=== PATIENT | male | born 1960 | race Caucasian/White ===

== ENCOUNTER 2024-02-19 11:10 | Emergency (ER) | payer SELFPAY ==
[~2024-02-19] VITALS: Ht 175.3 cm; Wt 65.0 kg
[2024-02-19] VITALS (11 sets, daily range): BP systolic 102–123; BP diastolic 69–88
[2024-02-19] MEDS ORDERED: ISOVUE-300 (Iopamidol) 100 ML SDV IV ONE (13:00)
[2024-02-19 13:17] LABS: URINE BLOOD DIPSTICK Moderate (NEGATIVE); URINE GLUCOSE - DIPSTICK 100 mg/dL (NEGATIVE); URINE KETONE 15 mg/dL (NEGATIVE); URINE PROTEIN - DIPSTICK >=300 mg/dL (NEG-TRACE); URINE SPECIFIC GRAVITY 1.025
[2024-02-19 13:18] LABS: URINE COLOR Dark yellow; URINE LEUK ESTERASE Large (NEGATIVE); URINE NITRITE - DIPSTICK Positive (Negative)
[2024-02-19 13:31] LABS: URINE WBC >100 WBC/hpf (0-5)
[2024-02-19 13:34] LABS: URINE BACTERIA MODERATE hpf
[2024-02-19 13:36] LABS: URINE MUCUS MODERATE hpf (NONE-FEW)
[2024-02-19 13:43] LABS: ALBUMIN 3.6 g/dL (3.2-5.0); BASO% 0.8 % (0-3); CREATININE 0.6 mg/dL (0.7-1.3); HEMOGLOBIN 11.1 g/dl (14.0-18.0); MEAN CELL VOLUME 87.6 fL CALC (80.0-100.0); MEAN CORPUSCULAR HGB 28.6 pG CALC (26.0-32.0); MEAN CORPUSCULAR HGB CONC 32.6 g/dL CAL (32.0-36.0); MONO% 9.7 % (2-13); NEUT# 10.81 thou/uL (1.82-7.42); NEUT% 75.5 % (42-76); POTASSIUM 3.7 mmol/l (3.5-5.1); RED BLOOD COUNT 3.88 mill/uL (4.70-6.10)
[2024-02-19] MEDS ORDERED: SODIUM CHLORIDE 0.9% 1,000 ML IV ONE (13:45)
[2024-02-19] MEDS ORDERED: cefTRIAXone SODIUM 2 GM in SODIUM CHLORIDE 0.9% 100 ML IV ONE (13:45)
[2024-02-19] MEDS ORDERED: cefTRIAXone SODIUM 2 GM/VIAL SDV IJ ONE (14:00)
[2024-02-19] MEDS ORDERED: CIPROFLOXACN500 MG PO (17:54)
[2024-02-19] MEDS ORDERED: METRONIDAZOLE500 MG PO (17:54)
== END 2024-02-19 18:25 | disposition home or self-care (01) | DRG 699 ==
LOC: ED 11:10
PROVIDERS: Emergency Medicine; Nurse Practitioner
DX: N32.1 Vesicointestinal fistula (principal); K57.32 Diverticulitis of large intestine without perforation or abscess without bleeding; N39.0 Urinary tract infection, site not specified; B96.4 Proteus (mirabilis) (morganii) as the cause of diseases classified elsewhere; F17.210 Nicotine dependence, cigarettes, uncomplicated
CPT/HCPCS: J0696; J1836; Q9967

== ENCOUNTER 2024-03-19 06:37 | Day surgery (SDC) | payer SELFPAY ==
[~2024-03-19] VITALS: Ht 175.3 cm; Wt 59.9 kg
[~2024-03-19 06:37] MED LIST: CIPROFLOXACN500 MG PO; METRONIDAZOLE500 MG PO
[2024-03-19] MEDS ORDERED: FAMOTIDINE 10MG/ML 2ML SDV IV ONE (06:44)
[2024-03-19] MEDS ORDERED: SODIUM CHLORIDE 0.9% 1,000 ML IV ONE (06:44)
[2024-03-19] MEDS ORDERED: ISOVUE-300 (Iopamidol) 100 ML SDV IV ONE (06:58)
[2024-03-19] MEDS ORDERED: Levofloxacin 500 mg Premix 100 ML IV ONE (07:44)
[2024-03-19] MEDS ORDERED: DIATRIZOATE MEGLUMINE & SODIUM 120 ML/BTL BTL PO ONE (09:00)
[2024-03-19] MEDS ORDERED: BARIUM SULFATE PR ONE (09:00)
[2024-03-19] MEDS ORDERED: STERILE WATER FOR IRRIGATION 500 ML BTL IR ONE (10:12)
[2024-03-19] MEDS ORDERED: SODIUM CHLORIDE 1,000 ML BTL IR ONE (10:12)
[2024-03-19] MEDS ORDERED: SODIUM CHLORIDE 3,000 ML BAG FOR IRRIGATION IR ONE (10:12)
[2024-03-19] MEDS ORDERED: STERILE WATER 3,000 ML IV ONE (10:12)
[2024-03-19] MEDS ORDERED: STERILE WATER FOR IRRIGATION 1,000 ML BTL IR ONE (10:18)
[2024-03-19 11:15] VITALS: BP 127/90
[2024-03-19] MEDS ORDERED: PROPOFOL 200 MG/20 ML VIAL IV ONE (13:17)
[2024-03-19] MEDS ORDERED: LIDOCAINE HCL 2% 2ML SDV IV ONE (13:17)
[2024-03-19] MEDS ORDERED: SODIUM CHLORIDE 0.9% 1,000 ML BAG IV ONE (13:17)
== END 2024-03-19 11:10 | disposition home or self-care (01) | DRG 669 ==
LOC: ORM 06:37
PROVIDERS: ATTEND Urology
PROC: 0TBB8ZX Excision of Bladder, Via Natural or Artificial Opening Endoscopic, Diagnostic (ICD-10-PCS; principal; 2024-03-19)
PROC: 0DBN8ZX Excision of Sigmoid Colon, Via Natural or Artificial Opening Endoscopic, Diagnostic (ICD-10-PCS; 2024-03-19)
DX: N32.1 Vesicointestinal fistula (principal); N30.00 Acute cystitis without hematuria; Q43.8 Other specified congenital malformations of intestine; K63.5 Polyp of colon; K57.30 Diverticulosis of large intestine without perforation or abscess without bleeding; K64.8 Other hemorrhoids; K64.4 Residual hemorrhoidal skin tags; F17.200 Nicotine dependence, unspecified, uncomplicated
CPT/HCPCS: J1956; Q9966